=== PATIENT | female | born 1975 | race Caucasian/White ===

== ENCOUNTER 2020-09-16 07:52 | Outpatient (CLI) | payer OTHER, SELFPAY ==
--- NOTE | 2020-09-16 08:11 | MM_ITS ---
WS: [id number] Exam: [id number] Date/Time of Exam: 09/16/2020 8:14 AM Reason For Exam: SCREENING VIEWS: MLO and as well as regional ultrasound recommended for further workup. Made with prior exam o f 07/10/2017. Findings: A new 12 mm nodular density is identified on the right cc view in the medial aspect of the right isidro st at about mid depth level. No architectural distortion or suspicious calcification is seen. This le concha is difficult to identify with any degree of certainty on the MLO view but may be above the nippl e line. There were no suspicious changes in the left breast. . The breasts are heterogeneously dense . MM/[place] [id number] Impression: BI-RADS: 0-Incomplete: Need additional imaging evaluation FOLLOW-UP: Spot compression images in the CC and MLO projections as well as a 9 0 degree lateral view of the right breast recommended for further workup. Also regional ultrasound of this area is recommended. This mammogram was also analyzed by the Computer Aided Detection System R2 Imag e Environmental Communications Specialist.
== END 2020-09-16 07:53 | disposition home or self-care (01) ==
PROVIDERS: PCP Electrodiagnostic Medicine; Visit Provider Electrodiagnostic Medicine
DX: Z12.31 Encounter for screening mammogram for malignant neoplasm of breast (principal)
CPT/HCPCS: 77067

== ENCOUNTER 2020-10-01 08:45 | Outpatient (CLI) | payer OTHER, SELFPAY ==
--- NOTE | 2020-10-01 08:51 | US_ITS ---
WS: [id number] Right breast ultrasound, 10/01/2020 Clinical Data: RT BREAST MASS Comparison: None. Findings: At the 2:00 position to the 3:00 position ultrasound showed only normal breast tissue. No cysts or ma sses could be seen. US/US breast RT limited* [id number] Impression: 1. Negative ultrasound of the right breast at the 2 to 3:00 position. 2. Recommend annual screening mammograms. BIRADS: 2-Benign FOLLOW UP: 1 Year Follow-up
--- NOTE | 2020-10-01 08:51 | MM_ITS ---
WS: [id number] Right breast diagnostic digital mammogram, 10/01/2020 Clinical Data: RT BREAST MASS Comparison: 09/16/2020, 07/10/2017. Findings: Compression views of the right breast in the CC and MLO imaging were performed. There is also a right ML view. The breasts show heterogeneous density. No spiculated masses or clustered calcification can be seen. The density noted on the cc view in the medial aspect of the right breast is not seen on th [place] current examination. MM/[id number] Impression: 1. Negative right breast mammogram. 2. Right breast mammogram will be performed. BIRADS: 2-Benign FOLLOW UP: See Report The CAD box car checker was used.
== END 2020-10-01 08:46 | disposition home or self-care (01) ==
LOC: RADSHAW 08:47
PROVIDERS: PCP Electrodiagnostic Medicine; Visit Provider Electrodiagnostic Medicine
DX: N63.15 Unspecified lump in the right breast, overlapping quadrants (principal)
CPT/HCPCS: 76642; 77065

== ENCOUNTER → 2021-09-19 11:45 | Outpatient (BNVA) | payer OTHER, SELFPAY | PROVIDERS: PCP Family Medicine; Visit Provider Family Medicine | DX: R53.81 Other malaise (principal); R53.83 Other fatigue; R25.2 Cramp and spasm; E03.9 Hypothyroidism, unspecified; E53.8 Deficiency of other specified B group vitamins; E55.9 Vitamin D deficiency, unspecified; R23.2 Flushing; Z12.11 Encounter for screening for malignant neoplasm of colon; E78.5 Hyperlipidemia, unspecified | CPT/HCPCS: 80053; 82306; 82607; 83001; 83735; 84439; 84481 ==

== ENCOUNTER 2022-08-14 12:20 | Outpatient (CLI) | payer OTHER, SELFPAY ==
--- NOTE | 2022-08-14 13:01 | MM_ITS ---
WS: [id number] VIEWS: MLO and CC views both breasts. 3D digital tomosynthesis is also included in this exam. Comparison made with prior exam of 07/10/2017, 10/01/2020, 09/16/2020.. Findings: There was no sign of mass, architectural distortion or suspicious calcification in either breast. Th e breasts are heterogeneously dense, which may obscure small masses MM/[place] [id number] Impression: BI-RADS: 2-Benign finding. FOLLOW-UP: 1 Year Follow-up This mammogram was also analyzed by the Computer Aided Detection System R2 Imag e Pulp Piler.
== END 2022-08-14 12:21 | disposition home or self-care (01) ==
PROVIDERS: PCP Family Medicine; Visit Provider Nurse Practitioner Family
DX: Z12.31 Encounter for screening mammogram for malignant neoplasm of breast (principal)
CPT/HCPCS: 77063; 77067